=== PATIENT | female | born 1980 | race African-American/Black ===

== ENCOUNTER 2022-06-04 13:41 | Emergency (ER) | payer OTHER ==
[~2022-06-04] VITALS: Ht 165.1 cm; Wt 77.1 kg
--- NOTE | 2022-06-04 13:50 | NUR ---
RECEIVED PT 42 yrs femal came by ramandeep from home c/o chest pain 10/21 at 1215 today realeaved after NIG SPREA AND ASA PO GIVEN BY RAMANDEEP
--- NOTE | 2022-06-04 13:55 | NUR ---
EKG DONE AT BED SIDE
--- NOTE | 2022-06-04 14:09 | NUR ---
BLOOD DROW BY LAB TACH
[2022-06-04 14:30] LABS: BASOPHILS % (AUTO) 0.3 % (0.0-2.0); EOSINOPHILS % (AUTO) 0.9 % (0.0-6.0); HEMATOCRIT 40 % (33-45); HEMOGLOBIN 13.1 g/dL (11.5-14.8); LYMPHOCYTES # (AUTO) 1.6 K/uL (0.8-4.8); LYMPHOCYTES % (AUTO) 19.6 % (20.0-44.0); MEAN CORPUSCULAR HGB CONC 33 g/dl (31.0-36.0); MEAN CORPUSCULAR VOLUME 92 fL (82-100); MONOCYTES # (AUTO) 0.7 K/uL (0.1-1.30); MONOCYTES % (AUTO) 8.3 % (2.0-12.0); NEUTROPHILS # (AUTO) 5.8 K/uL (1.8-8.9); NEUTROPHILS % (AUTO) 70.9 % (43.0-81.0); PLATELET COUNT (AUTO) 251 K/uL (150-450); RED BLOOD CELL COUNT(AUTO) 4.35 MIL/uL (4.0-5.2); WHITE BLOOD COUNT (AUTO) 8.2 K/uL (4.3-11.0)
[2022-06-04 14:42] LABS: CALCIUM, SERUM 8.4 mg/dL (8.5-10.1); CARBON DIOXIDE 22 mmol/L (21-32); CHLORIDE 102 mmol/L (98-107); CREATININE 0.9 mg/dL (0.6-1.3); GLUCOSE 98 mg/dL (74-106); POTASSIUM 3.4 mmol/L (3.5-5.1); SODIUM SERUM 134 mmol/L (136-145); UREA NITROGEN, BLOOD 16 mg/dL (7-18)
--- NOTE | 2022-06-04 15:25 | NUR ---
RESTING AND COMFORTABLE NO change in EKG NO CHEST PAIN
--- NOTE | 2022-06-04 16:30 | NUR ---
WATING FOR LAB RESULT DINESES CHEST PAIN 0/10
--- NOTE | 2022-06-04 17:00 | NUR ---
DR. GODDARD at bed side spook with pt about lab result and plan of care came bace to ed for any cp or sob
--- NOTE | 2022-06-04 17:08 | NUR ---
Patient discharged to home in stable condition. Written and verbal after care instructions given. Patient verbalizes understanding of instruction.
--- NOTE | 2022-06-04 17:32 | NUR ---
Horacio zambrano in ED - 06/04/22 at [email or web address] GODDARD AT BED SIDE spooking with pt about lab result and plan of care TO D/C HOME TODAY came back for any chest pain or sob
[2022-06-04 17:37] VITALS: BP 106/68
== END 2022-06-04 17:38 | disposition home or self-care (01) ==
LOC: ER 13:44
DX: F41.9 Anxiety disorder, unspecified (principal); R07.89 Other chest pain; G43.909 Migraine, unspecified, not intractable, without status migrainosus; J45.909 Unspecified asthma, uncomplicated; F31.9 Bipolar disorder, unspecified; E03.9 Hypothyroidism, unspecified; Z88.0 Allergy status to penicillin
CPT/HCPCS: 36415; 71045-TC; 80048-TC; 84484-TC; 85025-TC